=== PATIENT | male | born 1945 | race Caucasian/White ===

== ENCOUNTER 2021-02-14 12:35 | Emergency (ER) | payer MEDICARE, BC, SELFPAY ==
[2021-02-14] VITALS (15 sets, daily range): BP systolic 133–171; BP diastolic 64–90; PULSE 71–87; RESP 6–18; TEMP 36.5; O2SAT 94–98
--- NOTE | 2021-02-14 12:30 | RT.EKG_ITS ---
APPROVED REPORT Exam: Resting ECG Reason for Exam: dizzy Patient Location: E HR:82 bpm ECG Measurements Heart Rate 82 AXIS TN 161 P 38 QRSd 92 QRS 8 QT 354 T 78 QTc 405 Conclusion Sinus rhythm...normal P axis, V-rate 60- 99 Atrial premature complexes...SV complexes w/ short R-R intvls Consider anteroseptal infarct...Q >30mS, dimin R, V1-V2
--- NOTE | 2021-02-14 13:00 | DI.CT_ITS ---
Exam(s) CT BRAIN NECK CTA EXAM: CT BRAIN NECK CTA CLINICAL HISTORY: dizziness. TECHNIQUE: Imaging Protocol: Axial CT angiography was performed with multi-slice acquisition and mu lti-planar and/or 3D reconstructions. CONTRAST MATERIAL: Intravenous: Omnipaque 350 Contrast volume:85 ml COMPARISON: No exams were available for comparison FINDINGS: CT Head W/O and W contrast: Ventricles and Extra axial spaces: Normal in size and morphology for the patient's age. Hemorrhage: None. Cerebral parenchyma: Normal. Midline shift: None. Brainstem/Cerebellum: Normal. Calvarium: Normal. Visualized Paranasal sinuses/Mastoids: Mucous retention at the floors of the maxillary sinuses. Mild mucosal thickening of the ethmoid sinuses. Soft Tissues: Unremarkable. Enhancement: Normal. CTA Brain W: Internal Carotid Arteries: Petrous: Normal. Cavernous: Normal. Cerebral: Normal. Middle Cerebral Arteries: Right: No aneurysm, occlusion or significant stenosis. Left: No aneurysm, occlusion or significant stenosis. Anterior Cerebral Arteries: Right: No aneurysm, occlusion or significant stenosis. Left: No aneurysm, occlusion or significant stenosis. Posterior cerebral Arteries: Right: No aneurysm, occlusion or significant stenosis. Left: No aneurysm, occlusion or significant stenosis. Vertebral Arteries: Right: No aneurysm, occlusion or significant stenosis. Left: No aneurysm, occlusion or significant stenosis. Basilar Artery: No aneurysm, occlusion or significant stenosis. CTA Neck W: Common Carotid: Right: No aneurysm, occlusion or significant stenosis. Left: No aneurysm, occlusion or significant stenosis. External Carotid: Right: No aneurysm, occlusion or significant stenosis. Left: No aneurysm, occlusion or significant stenosis. Internal Carotid: Right: Calcific plaque proximal. No aneurysm, occlusion or significant stenosis. Left: No aneurysm, occlusion or significant stenosis. Vertebral Artery: Right: No aneurysm, occlusion or significant stenosis. Left: No aneurysm, occlusion or significant stenosis. Lung Apices: Normal. Bones: Severe degenerative changes of the cervical spine. Soft Tissues: Normal. IMPRESSION: 1. Normal CTA examination of the [place]. 2. Unremarkable CT Head. 3. Mild calcific plaque proximal right internal carotid artery. No significant stenosis.. RADIATION DOSE DELIVERED: Total DLP DATA REPOSITORY: All CT scans at this facility are submitted to the National Radiology Data Registry (NRDR) Dose Index Registry (DIR) with the [employer] (A[employer]). RADIATION OPTIMIZATION: All CT scans at this facility use at least one of these dose optimization te chniques: automated exposure control; mA and/or kV adjustment per patient size (includes targeted exa ms where dose is matched to clinical indication); or iterative reconstruction.
[2021-02-14] MEDS: Meclizine 25 MG TAB PO (13:22)
[2021-02-14] MEDS: Normal Saline 500 ML IV (13:23)
[2021-02-14 13:32] LABS: Abs Immature Grans 0.06 10^3/uL (0.0-0.06); Absolute Basophil Count 0.08 10^3/uL (0.0-0.2); Absolute Eosinophil Count 0.11 10^3/uL (0.0-0.7); Absolute Lymphocyte Count 1.28 10^3/uL (1.2-3.4); Absolute Neutrophil Count 9.27 10^3/uL (1.2-6.7); Basophils % 0.7; Eosinophils % 0.9; HCT 48.2 % (40.0-50.0); HGB 16.5 g/dL (13.5-17.5); Immature Grans % 0.5; MCH 29.5 pg (27.0-33.0); MCHC 34.2 % (32.0-36.0); MCV 86.1 fL (80-95); MPV 11.3 fL (8.0-11.0); Monocytes % 7.5; Neutrophils % 79.4; Nucleated RBC 0 %; Platelet Count 255 10^3/uL (130-400); RDW 12.7 % (11.8-14.1); RDW-SD 39.8 fL; WBC 11.67 10^3/uL (4.4-10.8)
[2021-02-14 13:38] LABS: Absolute Monocyte Count 0.88 10^3/uL (0.1-0.8)
[2021-02-14 13:45] LABS: ALT 38 U/L (16-63); AST 17 U/L (15-37); Alkaline Phosphatase 58 U/L (46-116); Anion Gap 8.6 mmol/L (3-11); BUN 23 mg/dL (7-18); Bilirubin, Total 1.3 mg/dL (0.2-1.0); CO2 28.4 mmol/L (21.0-32.0); CREATININE 1.2 mg/dL (0.70-1.30); Calcium 9.2 mg/dL (8.5-10.1); Chloride 102 mmol/L (98-107); Estimated GFR 58.86 (mL/min/1.73m2); Glucose 166 mg/dL (74-106); Magnesium 1.8 mg/dL (1.8-2.4); Potassium 3.6 mmol/L (3.5-5.1); Sodium 139 mmol/L (136-145); Total Protein 7.4 g/dL (6.4-8.2); Troponin I < 0.05 ng/mL (<0.06)
--- NOTE | 2021-02-14 13:49 | ED.GENADUL_ITS ---
Discharge Plan Disposition Patient Disposition: HOME Condition: Good Discharge Details Clinical Impression: Dizziness Primary Care Provider: Unknown,Unknown ED Provider: Sana Evans Home Meds and New Rx's Prescriptions: New meclizine 25 mg tablet 25 mg PO TID PRNQty: 10 RF: 0 Discharge Instructions Instructions: Dizziness (ED) Additional Instructions: Take meclizine as needed for dizziness i have ordered Physical therapy should you need to have Paula maneuver performed, this can also help with vertigo Your CAT scan does not show significant abnormality, you have a slight plaque that is not likely contributing to your symptoms, follow-up with pcp Should you have symptoms uncontrolled with the meclizine, I recommend you be reassessed in the emergency room No driving while taking meclizine, this will make you drowsy Should you have headache or any new or worsening complaints, please be reassessed Talk to your doctor about your blood pressure medications and return earlier should you have new or worsening complaints Stand Alone Forms: Physical Therapy Referral Referrals: Unknown,Unknown [Primary Care Provider] - Discharge Data Discharge Date/Time-TO BE ENTERED AT DEPARTURE: 02/14/21 15:36 Medical Decision Making Orthostatic negative, nonfocal neurological exam, CT finding 1. Normal CTA examination of the [place]. 2. Unremarkable CT Head. 3. Mild calcific plaque proximal right internal carotid artery. No significant stenosis.. Patient made aware regarding findings Diagnostic labs within normal limits, ambulatory steady gait Return precautions patient expressed understanding, discharged home in stable condition ambulatory with steady gait Did consider vertebral or carotid artery dissection urged CVA, however patient is completely asymptomatic after meclizine, ambulatory with steady gait, and much lower suspicion given the peripheral nature of his symptoms or anything central in nature Recheck in 24 to 48 hours recommended, discharged home on meclizine prescriptions and return precautions Medical Records Medical records reviewed: Yes I reviewed the patient's medical records. Lab Data Lab results reviewed: Yes I reviewed the patient's lab results. HPI General Mode of arrival: ambulatory . Date/Time Provider Initiated Documentation: 02/14/21 12:59 . Limitations to Documentation: no limitations . Information obtained by: patient . HPI Narrative: This 75-year-old male presents with intermittent dizziness since Wednesday. He received a flu shot on Wednesday and early Wednesday morning had an episode of redness pending. A similar episode several years ago but it was not as persistent. He states he had an additional episode yesterday which lasted several seconds. Today he had a 2-minute episode. He describes it as room spinning. He states now he feels woozy but the spinning has resolved. He denies any headache, chest pain, shortness of breath, weakness. He denies any head injuries or neck manipulation. Denies history of CVA or dissection. He denies any abdominal pain. Denies any confusion, speech, or sensation change. Denies any localized weakness. Related Data Home Medications Medication Instructions Recorded Confirmed meclizine 25 mg PO TID PRN #10 tab 02/14/21 Previous Rx's Medication Instructions Recorded meclizine 25 mg PO TID PRN #10 tab 02/14/21 General Stated Complaint: Dizzy/Sync VIOLA: 3 Review of Systems All systems reviewed & are unremarkable except as noted in HPI and below PFSH Social History Smoking/Tobacco Use Status: Never Smoking risk assessment performed?: Yes Alcohol Intake: never Drug use: Never Do you feel safe at home: Yes Do you feel safe in your relationship?: Yes Exam Const General: cooperative, comfortable and no acute distress HENMT Head: normal to inspection Other: Moist mucous membranes Eyes Pupils: PERRL EOM: EOM intact bilaterally Resp Effort & Inspection: normal respiratory effort Auscultation: clear to auscultation bilaterally Cardio Rate: regular rate Rhythm: regular rhythm GI Inspection: normal to inspection Skin General skin exam: no rashes or lesions noted Neuro General: patient alert, patient oriented x3, no focal motor deficits and CN's II-XI intact bilaterally Cranial Nerves: CN's II-XI intact bilaterally Cognition: normal cognition Speech: speech normal Gait: normal gait Motor: muscle tone normal throughout, strength 5/5 throughout and no pronator drift Sensory Exam: no sensory deficits noted Coordination: [id number] test normal Other: Negative heel avila Course Vital Signs Vital signs: Vital Signs Temperature 36.5 C 02/14/21 12:44 Pulse 74 02/14/21 12:44 Respiratory Rate 18 02/14/21 12:44 Blood Pressure 171/86 H 02/14/21 12:44 Pulse Oximetry 98 02/14/21 12:44 Temperature 36.5 C 02/14/21 12:44 Temperature Source Tympanic 02/14/21 12:44 Pulse 74 02/14/21 12:44 Respiratory Rate 18 02/14/21 12:50 Respiratory Effort Non-Labored 02/14/21 12:50 Respiratory Depth Normal 02/14/21 12:50 Respiratory Pattern Normal 02/14/21 12:50 Blood Pressure 171/86 H 02/14/21 12:44 Pulse Oximetry 98 02/14/21 12:44 Oxygen Delivery Method Room Air 02/14/21 12:44 Oxygen Flow Rate 0 02/14/21 12:44 Pain Level 0 02/14/21 12:44 Lab/Test Results Lab/Test Results: Laboratory Tests Range/Units 02/14/21 02/14/21 13:15 13:15 WBC (4.4-10.8) 10^3/uL 11.67 H RBC (4.36-5.78) 10^6/uL 5.60 Hgb (13.5-17.5) g/dL 16.5 Hct (40.0-50.0) % 48.2 MCV (80-95) fL 86.1 MCH (27.0-33.0) pg 29.5 MCHC (32.0-36.0) % 34.2 RDW (11.8-14.1) % 12.7 Plt Count (130-400) 10^3/uL 255 MPV (8.0-11.0) fL 11.3 H Immature Gran % 0.5 Neutrophils % 79.4 Lymphocytes % 11.0 Monocytes % 7.5 Eosinophils % 0.9 Basophils % 0.7 Nucleated RBC % % 0 Absolute Neutrophils (1.2-6.7) 10^3/uL 9.27 H Absolute Lymphocytes (1.2-3.4) 10^3/uL 1.28 Absolute Monocytes (0.1-0.8) 10^3/uL 0.88 H Absolute Eosinophils (0.0-0.7) 10^3/uL 0.11 Absolute Basophils (0.0-0.2) 10^3/uL 0.08 Sodium (136-145) mmol/L 139 Potassium (3.5-5.1) mmol/L 3.6 Chloride (98-107) mmol/L 102 Carbon Dioxide (21.0-32.0) mmol/L 28.4 Anion Gap (3-11) mmol/L 8.6 BUN (7-18) mg/dL 23 H Creatinine (0.70-1.30) mg/dL 1.2 Estimated GFR/1.73 m2 (mL/min/1.73m2) 58.86 Glucose (74-106) mg/dL 166 H Calcium (8.5-10.1) mg/dL 9.2 Magnesium (1.8-2.4) mg/dL 1.8 Total Bilirubin (0.2-1.0) mg/dL 1.3 H AST (15-37) U/L 17 ALT (16-63) U/L 38 Alkaline Phosphatase (46-116) U/L 58 Troponin I (<0.06) ng/mL < 0.05 Total Protein (6.4-8.2) g/dL 7.4 Albumin (3.4-5.0) g/dL 4.0
[2021-02-14] MEDS: Omnipaque 350 MG/ML 100 ML BTL IJ (14:47)
[2021-02-14] MEDS: Normal Saline - Diluent 50 ML VIAL IV (14:48)
[2021-02-14] MEDS: Normal Saline Flush 10 ML SYR IVP (14:48)
== END 2021-02-14 15:36 | disposition home or self-care (01) ==
PROVIDERS: Emergency Provider Physician Assistant
DX: R42 Dizziness and giddiness (principal); T46.4X6A Underdosing of angiotensin-converting-enzyme inhibitors, initial encounter; Z91.128 Patient's intentional underdosing of medication regimen for other reason; R05.1 Acute cough; T46.4X5A Adverse effect of angiotensin-converting-enzyme inhibitors, initial encounter
CPT/HCPCS: 36415; 70496; 70498; 80053; 93005; 96360; 99285; 83735; 84484; 85025; 93010; 99284; J3490

== ENCOUNTER 2024-11-20 04:40 | Outpatient (CLI) | payer MEDICARE, SELFPAY ==
[2024-11-20 12:13] LABS: Anion Gap 8.4 mmol/L (3-11); BUN 28 mg/dL (7-18); CO2 29.6 mmol/L (21.0-32.0); Calcium 9.5 mg/dL (8.5-10.1); Chloride 101 mmol/L (98-107); Estimated GFR 61.13 (mL/min/1.73m2); Glucose 197 mg/dL (74-106); Potassium 3.6 mmol/L (3.5-5.1); Sodium 139 mmol/L (136-145)
== END 2024-11-20 04:41 | disposition home or self-care (01) ==
LOC: LBO 04:40
PROVIDERS: Visit Provider Physician Assistant
DX: I10 Essential (primary) hypertension (principal)
CPT/HCPCS: 36415; 80048